=== PATIENT | female | born 1940 | race Caucasian/White ===

== ENCOUNTER → 2020-03-08 | Outpatient (CLI) | payer MEDICARE, OTHER ==
[~2020-03-08] MED LIST: ACET325 PO; ALBU90OI INH; AMLO10 PO; AMOX875 PO; ASPI81CH PO; BENTYL10 MG; BENTYL10 MG PO; BP MED; Biotin1 MG PO; CALCA500CH PO; CIPR500 PO; CLON.1 PO; DICYCLOMINE PO; DOC250 PO; ERGO400 PO; FLUT44OIA IH; Flonase 0.05% N16 GM; GLUC500 PO; HYDACE5 PO; HYDMOR2 PO; HYDPAM50 PO; IBUP800; LATA.005SO BOTHEYES; LIDOCAINE5 GM TP; LISI20 PO; LISI5 PO; METCAR500 PO; METPRE4DP PO; METR500 PO; MULVITMIND PO; MUPI2TO TOP; NORT50; OMEP10ER; OMEP20ER PO; ONDA4 PO; ONDA4ODT MM; ONDA8 PO; OXYACE5T PO; POTA10T PO; POTCHL20ER PO; PROACE100 PO; PROACE50; PROM25 PO; PROP60 PO; Percocet 10-321 EACH PO; Propranolol HCl60 MG; RXHYDMOR2 PO; RXONDA4ODT MM; TOCO400 PO; TRAM50 PO; TRIA50; TRIHYD5075 PO; Zithromax250 MG PO; [UNRECOGNIZED DRUG - REMARK]
== END | disposition home or self-care (01) ==
LOC: LAB EV 12:22 → LAB SHORT 12:22
DX: N39.0 Urinary tract infection, site not specified (principal)
CPT/HCPCS: 87086

== ENCOUNTER 2022-04-19 10:40 | Inpatient (IN) | payer MEDICARE ==
[~2022-04-19] VITALS: Ht 167.6 cm; Wt 83.8 kg
[~2022-04-19 10:40] MED LIST changes: -Propranolol HCl60 MG; +Propranolol HCl60 MG PO
[2022-04-19 11:09] LABS: BASOPHILS ABSOLUTE AUTO 0.02 K/mm3 (0.00-0.23); BASOPHILS PERCENT AUTO 0 % (0-2); EOSINOPHILS ABSOLUTE AUTO 0.01 K/mm3 (0.00-0.68); EOSINOPHILS PERCENT AUTO 0 % (0-6); Hematocrit 38.2 % (33.0-51.0); IMMATURE GRAN ABSOLUTE AUTO 0.04 K/mm3 (0.00-0.10); IMMATURE GRAN PERCENT AUTO 0 % (0-1); LYMPHOCYTES PERCENT AUTO 28 % (21-46); MONOCYTES ABSOLUTE AUTO 0.99 K/mm3 (0.16-1.47); MONOCYTES PERCENT AUTO 7 % (4-13); Mean Corpuscular HGB 26.2 pg (26.0-34.0); Mean Corpuscular HGB Conc 31.4 g/dL (31.5-36.5); Mean Corpuscular Volume 83 fL (80-100); Mean Platelet Volume 9.9 fL (9.1-12.4); NEUTROPHILS ABSOLUTE AUTO 8.98 K/mm3 (1.96-9.15); NEUTROPHILS PERCENT AUTO 65 % (41-73); Platelet Count 344 K/mm3 (150-400); RDW Coefficient Variation 14.8 % (11.7-14.2); RDW Standard Deviation 44.8 fL (35.1-46.3); Red Blood Cell Count 4.58 M/mm3 (3.80-5.20); White Blood Cell Count 13.84 K/mm3 (4.00-11.30)
[2022-04-19 11:17] LABS: Albumin, Blood 3.4 g/dL (3.4-5.0); Albumin/Globulin Ratio 0.8 (0.8-1.8); Bilirubin, Total 0.4 mg/dL (0.1-1.0); Bun/Creatinine Ratio 32.3 (12.0-20.0); Calcium, Blood 8.8 mg/dL (8.5-10.1); Creatinine, Blood 0.62 mg/dL (0.40-1.00); Potassium, Blood 3.5 mmol/L (3.5-5.5); Total Protein, Blood 7.4 g/dL (6.4-8.2)
[2022-04-19 12:23] LABS: Source, Urine Clean Catch
[2022-04-19 12:53] LABS: Appearance, Urine Clear (Clear); Bilirubin, Urine Neg (Neg); Blood, Urine 1+ (Neg); Color, Urine Yellow (P-Yellow); Glucose Qualitative, Urine Neg (Neg); Ketones, Urine Neg (Neg); Leukocyte Esterase, Urine Neg (Neg); Nitrite, Urine Neg (Neg); Protein, Urine 1+ (Neg); Urobilinogen, Urine NORM (Normal)
[2022-04-19 13:29] LABS: Bacteria Not Seen /hpf; Red Blood Cells, Urine 0-2 /hpf (0-2); Squamous Epithelial Cells Rare /hpf (Few); White Blood Cells, Urine 0-2 /hpf (0-5)
[2022-04-19 19:02] LABS: Hematocrit 38.4 % (33.0-51.0); Hemoglobin 12.1 g/dL (11.5-16.0)
--- NOTE | 2022-04-19 19:36 | NUR ---
SHIFT SUMMARY/ ADMIT NOTE- PT ADMITTED THROUGH THE ED FOR COLITIS, SHE HAS A LLE DVT. ON ASSESSMENT LEFT PEDAL PULSE IS STRONGER THAN THE RIGHT. PT C/O A 9/10 HEADACHE MEDICATED WITH TYLENOL. PT SOUNDS CONGESTED AND STATED THE HEADACHE FEELS LIKE A SINUS HEADACH WITH PRESSURE IN HER FOREHEAD AND CHEEKS. IVF STARTED AND ABX INFUSING. PT IS ALERT ORIENTED AND INDEPENDENT IN THE ROOM. NOTED A GI PANEL ORDER, PT TO BE PLACED IN ISO FOR R/O C-DIFF BY POULTRY FARMWORKER STAFF. BEDSIDE REPORT COMPLETED WITH NIGHT RN, PT IN BED, CALL LIGHT IN REACH, BED LOW, NO S&S OF DISTRESS NOTED AT THIS TIME.
[2022-04-19] MEDS ORDERED: METOPROLOL TART25 MG PO (19:45)
[2022-04-19 23:48] LABS: Adenovirus F 40/41 Not Detected (NOT DETECT); Astrovirus Not Detected (NOT DETECT); Campylobacter Sp Not Detected (NOT DETECT); Cryptosporidium Not Detected (NOT DETECT); Cyclospora Cayetanensis Not Detected (NOT DETECT); E. Coli O157 Not Detected (NOT DETECT); Entamoeba Histolytica Not Detected (NOT DETECT); Enteroaggregative E. coli-EAEC Not Detected (NOT DETECT); Enteropathogenic E. coli-EPEC Not Detected (NOT DETECT); Enterotoxigenic E. coli-ETEC Not Detected (NOT DETECT); Giardia Lamblia Not Detected (NOT DETECT); Norovirus GI/GII Not Detected (NOT DETECT); Plesiomonas Shigelloides Not Detected (NOT DETECT); Rotavirus A Not Detected (NOT DETECT); Salmonella Sp Not Detected (NOT DETECT); Sapovirus Not Detected (NOT DETECT); Shiga Toxin-prod E. coli-STEC Not Detected (NOT DETECT); Shigella/Enteroin E. coli-EIEC Not Detected (NOT DETECT); Vibrio Cholerae Not Detected (NOT DETECT); Vibrio Sp Not Detected (NOT DETECT); Yersinia Enterocolitica Not Detected (NOT DETECT)
[2022-04-20 05:14] LABS: BASOPHILS ABSOLUTE AUTO 0.03 K/mm3 (0.00-0.23); BASOPHILS PERCENT AUTO 0 % (0-2); EOSINOPHILS ABSOLUTE AUTO 0.02 K/mm3 (0.00-0.68); EOSINOPHILS PERCENT AUTO 0 % (0-6); Hematocrit 35.4 % (33.0-51.0); Hemoglobin 11.2 g/dL (11.5-16.0); IMMATURE GRAN ABSOLUTE AUTO 0.04 K/mm3 (0.00-0.10); IMMATURE GRAN PERCENT AUTO 0 % (0-1); LYMPHOCYTES ABSOLUTE AUTO 2.13 K/mm3 (0.84-5.20); LYMPHOCYTES PERCENT AUTO 18 % (21-46); MONOCYTES ABSOLUTE AUTO 0.94 K/mm3 (0.16-1.47); MONOCYTES PERCENT AUTO 8 % (4-13); Mean Corpuscular HGB 26.2 pg (26.0-34.0); Mean Corpuscular HGB Conc 31.6 g/dL (31.5-36.5); Mean Corpuscular Volume 83 fL (80-100); NEUTROPHILS ABSOLUTE AUTO 8.72 K/mm3 (1.96-9.15); NEUTROPHILS PERCENT AUTO 73 % (41-73); Platelet Count 286 K/mm3 (150-400); RDW Standard Deviation 44.9 fL (35.1-46.3); Red Blood Cell Count 4.27 M/mm3 (3.80-5.20); White Blood Cell Count 11.88 K/mm3 (4.00-11.30)
--- NOTE | 2022-04-20 05:26 | NUR ---
PATIENT WITH VSS ON RA OVERNIGHT. MODERATE C/O PAIN AND NAUSEA. SEE MAR. UP INDEPENDENTLY IN THE ROOM. MULTIPLE SMALL, BRIGHT RED STOOLS OVERNIGHT. SKIN INSPECTION REVEALS NO ACUTE SKIN BREAKDOWN. NO ACUTE EVENTS OVERNIGHT.
[2022-04-20 05:30] LABS: International Normalized Ratio 1.05
[2022-04-20 05:45] LABS: Albumin/Globulin Ratio 0.8 (0.8-1.8); Bilirubin, Total 0.6 mg/dL (0.1-1.0); Creatinine, Blood 0.59 mg/dL (0.40-1.00); Globulin, Blood 3.8 g/dL (2.2-4.0); Magnesium, Blood 2.1 mg/dL (1.6-2.4); Potassium, Blood 3.2 mmol/L (3.5-5.5); Total Protein, Blood 6.8 g/dL (6.4-8.2)
[2022-04-20 10:24] LABS: Hematocrit 37.9 % (33.0-51.0); Hemoglobin 11.9 g/dL (11.5-16.0)
--- NOTE | 2022-04-20 11:03 | NUR ---
Pt. is awake in bed and welcomes my visit. Pt. is unsettled waiting for a clear diagnosis of her abdominal pain as well as the status of a blood clot in her leg. Pt. is generally pleasant. Listen empathetically with a calming presence. Establish rapport and speak about her personal micah and belief which is a source of strength for her. Pt. verbalizes the support of her daughters. Prayed with Pt. Pt. displayed evidence of reduced stress. Pt. verbalized gratitude for the spiritual care visit.
[2022-04-20 11:33] LABS: Influenza A, PCR NEGATIVE (NEGATIVE); Influenza B, PCR NEGATIVE (NEGATIVE); Resp Syncytial Virus, PCR NEGATIVE (NEGATIVE); SARS-Cov-2 (COVID-19) PCR, MMC NEGATIVE (NEGATIVE)
[2022-04-20 14:02] LABS: Hematocrit 37.6 % (33.0-51.0); Hemoglobin 11.9 g/dL (11.5-16.0)
[2022-04-20 18:23] LABS: Hematocrit 37.7 % (33.0-51.0); Hemoglobin 12.1 g/dL (11.5-16.0)
--- NOTE | 2022-04-20 19:47 | NUR ---
SHIFT SUMMARY- CALLED DR ROBERT SEVERAL TIMES T/O THE SHIFT, PPT HAVING FAUZIA RED STOOLS AND RECIEVING LOVENOX SHOTS TO TREAT DVT. OK TO GIVE MORNING DOSE, WENT TO GIVE THE MORNING DOSE AND PT HAD PASSED A GOOD SIZED FAUZIA RED CLOT. CALLED AGAIN, ORDER TO HOLD OFF UNTIL SHE SPEAKS WITH IR. OK TO GIVE LOVENOX PER DR ROBERT, DOSE WAS LATE. PT HAS HAD AT LEAST THREE EPISODES OF PASSING BLOOD CLOTS THIS SHIFT, DR ROBERT IS AWARE. PT HAD AN EPISODE OF HYPERTENSION MEDICATED WITH PRN HYDRALIZINE, ON BP RECHECK THE PT HR WAS ELEVATED TO 130. PT WAS NOTABLY TIRED AND APEARED LESS INTERACTIVE WITH STAFF AND C/O STARTING TO DRY HEAVE. INFORMED AND RECIEVED ORDER FOR TELE AND IV LEBETOLOL FOR HR GREATER THAN 120. AFTER IV LEBETOLOL PT STATED THE NAUSEA WAS GREATLY IMPROVED BUT SHE WAS STILL NAUSEATED, GAVE PRN PHENEGREN. BEDSIDE REPORT COMPLETED WITH NIGHT RN AT THAT TIME PT REQUESTED MORE PAIN MANAGEMENT MEDICATION (DOSE WAS INCREASED PER EARLIER IN THE SHIFT) NIGHT RN TO MEDICATE THE PT. PT IN BED, CALL LIGHT IN REACH NO S&S OF DISTRESS RATES PAIN AT 7/10 AT THE TIME OF SHIFT CHANGE.
[2022-04-20 20:28] LABS: Hemoglobin 11.7 g/dL (11.5-16.0)
[2022-04-20 21:57] LABS: Hematocrit 35.4 % (33.0-51.0); Hemoglobin 11.2 g/dL (11.5-16.0)
[2022-04-21 01:57] LABS: BASOPHILS ABSOLUTE AUTO 0.04 K/mm3 (0.00-0.23); BASOPHILS PERCENT AUTO 0 % (0-2); EOSINOPHILS ABSOLUTE AUTO 0.02 K/mm3 (0.00-0.68); EOSINOPHILS PERCENT AUTO 0 % (0-6); Hematocrit 38.1 % (33.0-51.0); Hemoglobin 12.2 g/dL (11.5-16.0); IMMATURE GRAN ABSOLUTE AUTO 0.08 K/mm3 (0.00-0.10); IMMATURE GRAN PERCENT AUTO 1 % (0-1); LYMPHOCYTES ABSOLUTE AUTO 3.83 K/mm3 (0.84-5.20); LYMPHOCYTES PERCENT AUTO 26 % (21-46); MONOCYTES ABSOLUTE AUTO 1.01 K/mm3 (0.16-1.47); MONOCYTES PERCENT AUTO 7 % (4-13); Mean Corpuscular HGB 26.4 pg (26.0-34.0); Mean Corpuscular Volume 83 fL (80-100); Mean Platelet Volume 9.8 fL (9.1-12.4); NEUTROPHILS ABSOLUTE AUTO 9.89 K/mm3 (1.96-9.15); NEUTROPHILS PERCENT AUTO 67 % (41-73); Platelet Count 304 K/mm3 (150-400); RDW Standard Deviation 45.1 fL (35.1-46.3); Red Blood Cell Count 4.62 M/mm3 (3.80-5.20); White Blood Cell Count 14.87 K/mm3 (4.00-11.30)
[2022-04-21 02:16] LABS: Anion Gap 7 mmol/L (6-16); Blood Urea Nitrogen 7 mg/dL (8-24); Bun/Creatinine Ratio 11.3 (12.0-20.0); CO2, Blood 30 mmol/L (21-32); Calcium, Blood 8.6 mg/dL (8.5-10.1); Chloride, Blood 102 mmol/L (98-108); Creatinine, Blood 0.62 mg/dL (0.40-1.00); Glomerular Filtration Rate 90 (60-); Glucose, Blood 122 mg/dL (70-99); Phosphorus, Blood 2.8 mg/dL (2.5-4.9); Potassium, Blood 3.1 mmol/L (3.5-5.5); Sodium, Blood 139 mmol/L (136-145)
--- NOTE | 2022-04-21 04:33 | NUR ---
SHIFT SUMMARY: PT A/OX4, ADLIB IN ROOM AND INDEPENDENT WITH ADL'S. CONTINUED PLAN OF PAIN & NAUSEA CONTROL THROUGHOUT THE SHIFT. PATIENT CALLS APPROPRIATELY- REPORTS NO BLOOD IN STOOL THROUGHOUT THE NIGHT. PATIENT REPORTED 1 LARGE BOWEL MOVEMENT. PATIENT RECEIVED HIGHER DOSE OF 100 MCG FENTANYL AND TOLERATED WELL. PATIENT CONTINUES TO CALL APPROPRIATELY AND REPORTS NO DIZZINESS WHEN AMBULATING.
[2022-04-21 05:47] LABS: Hematocrit 34.5 % (33.0-51.0)
[2022-04-21 14:02] LABS: Hematocrit 35.4 % (33.0-51.0); Hemoglobin 11.2 g/dL (11.5-16.0)
--- NOTE | 2022-04-21 16:28 | NUR ---
RECIEVED A CALL FROM TELE- PT HR TACHY UP TO 150'S DOWN TO 120'S BY THE TIME OF THE CALL. CHECKED ON THE PT, SHE WAS LYING IN BED CALL LIGHT IN REACH NO S&S OF DISTRESS. VITALS CHECKED, READING WAS HIGH SO CHECKED IN BOTH ARMS SBP IN THE RIGHT ARM WAS 150'S LLEFT ARM WAS 190'S. CALLED DR BECKMAN, HE IS AWARE OF THE EPISODE OF TACHYCARDIA AND THE ODD BLOOD PRESSURE READINGS DIFFERENT IN BOTH ARMS.
--- NOTE | 2022-04-21 17:19 | NUR ---
PT HAD ANOTHER EPISODE OF TACHYCARDIA 160'S- BY THE TIME THE PT VITALS WERE CHECKED HER HR HAD REDUCED DOWN TO 103. PT WAS SITTING AT THE EOB AND STATED SHE WAS DRY HEAVING (NOT WITNESSED). WHEN ASKED IF SHE WAS NAUSEOUS NOW SHE STATED NO NOT AT THIS TIME, "ITS GONE NOW." CALLED DR BECKMAN HR NO LONGER SUSTAINING OVER 120, IV METOPROLOL NOT GIVEN. DR LERNER. REQUESTED TRANSFER TO PCU FOR CLOSER MONITORING AT THIS TIME.
--- NOTE | 2022-04-21 17:58 | NUR ---
TRANSFER NOTE- PT TRANSFERED TO PCU 20. TELEPHONE REPORT GIVEN TO MARCELINO SY. PT HR ELEVATED AT THE TIME OF ARRIVAL IN PCU. BASEBALL WINDER SUSY AT THE BEDSIDE, IV METOPROLOL PULLED BY THIS RN AND BROUGHT TO THE BEDSIDE AT THE TIME OF TRANSFER. PT DID NOT SEEM DISTRRESSED DISPITE THE HIGH HR. BRIDGE BUILDER ASSUMED CARE OF PT AND WAS PREPARING IV PUSH OF METOPROLOL.
--- NOTE | 2022-04-21 18:24 | NUR ---
ARRIVAL TO PCU/SHIFT SUMMARY PATIENT ARRIVED FROM MEDICAL FLOOR AT 1746. PATIENT TRANSFERED TO PCU BED INDEPDENTLY. PATIENT WHEN ARRIVING HEART RATE WAS IN 130S. PATIENT RECEIVED A PUSH OF METOPROLOL, SEE EMAR, AND HEART RATE HAS BEEN SUSTAINING IN 80-100S. PATIENT DID TACH UP TO 110 WHEN USING THE BEDSIDE COMODE AND THEN HEART RATE DECREASED BACK INTO THE 90S. BP IS LESS HYPERTENSIVE AFTER MEDICATION. SEE VITAL SIGNS. NEURO IS INTACT. ALERT AND OREINTED X4. PERRLA. PATIENT REPORTS NO CHEST PAIN/PRESSURE. TELE SINUS TACH. PROLONG QT INTERVAL 5.2. STRONG RADAIL AND PEDIS PULSES. PATIENT REPORTS NO SHORTNESS OF BREATH. CLEAR LUNG SOUNDS. ON RA SPO2 >90%. PATIENT ABD SOFT NONTENDER AND ACTIVE. PATIENT HAD A SMALL BLOODY STOOL. SKIN IS INTACT DRY AND CLEAN. PATIENT REPORTS NO PAIN. PATIENT USES CALL LIGHT APPRORPIATELY. CALL LIGHT WITHIN REACH AND BED IN LOWEST POSITION. WILL CONITNUE TO MONITOR AND PROVIDE CARE UNTIL HAND OFF WITH NEXT SHIFT.
--- NOTE | 2022-04-21 19:10 | NUR ---
ASSUMPTION OF CARE PT SITTING ON EDGE OF BED. SHE IS ALERT AND ORIENTED. C/O R SIDED ABDOMINAL PAIN THAT IS 7/10. MEDICATED PER EMAR. SHE STS THIS PAIN IS NOT NEW AND HAS FELT THE SAME THROUGHOUT THE HOSPITAL VISIT. SHE DENIES NAUSEA AT THIS TIME. SHE IS RECEIVING NS 100MLS/HR. SEE SHIFT ASSESSMENT.
--- NOTE | 2022-04-22 01:26 | NUR ---
UPDATE PT HAS BEEN RESTLESS FOR THE FIRST HALF OF THE NIGHT. SHE CONTINUES TO C/O ABDOMINAL PAIN IN THE LUQ AND LLQ. SHE STS THIS HAS BEEN UNCHANGED SINCE ADMISSION BUT IS BEGINNING TO "FEEL BETTER". SHE HAS BEEN USING THE RESTROOM ABOUT ONCE AN HOUR. SHE VOIDS CLEAR YELLOW URINE, BMS ARE LOOSE/LIQUID. AT THE BEGINNING OF THE SHIFT, BMS HAD RED TINT, NOW THEY ARE MOSTLY BROWN. OCCASIONAL NAUSEA AND DRY HEAVING SPELLS. SHE BECOMES TACHY WITH EXCERTION, HR INCREASING TO 110S-120S THAT QUICKLY SUBSIDE ONCE SHE IS BACK IN BED. SHE DENIES SOB OR CP. SHE HAS BEEN HYPERTENSIVE AND MEDICATED PER EMAR. SHE DENIES NEEDS AT THIS TIME, CALL LIGHT WITHIN REACH.
[2022-04-22 04:43] LABS: BASOPHILS ABSOLUTE AUTO 0.05 K/mm3 (0.00-0.23); BASOPHILS PERCENT AUTO 0 % (0-2); EOSINOPHILS ABSOLUTE AUTO 0.02 K/mm3 (0.00-0.68); EOSINOPHILS PERCENT AUTO 0 % (0-6); Hematocrit 35.7 % (33.0-51.0); Hemoglobin 11.5 g/dL (11.5-16.0); IMMATURE GRAN ABSOLUTE AUTO 0.06 K/mm3 (0.00-0.10); IMMATURE GRAN PERCENT AUTO 1 % (0-1); LYMPHOCYTES ABSOLUTE AUTO 3.58 K/mm3 (0.84-5.20); LYMPHOCYTES PERCENT AUTO 31 % (21-46); MONOCYTES ABSOLUTE AUTO 0.85 K/mm3 (0.16-1.47); MONOCYTES PERCENT AUTO 7 % (4-13); Mean Corpuscular HGB 26.6 pg (26.0-34.0); Mean Corpuscular HGB Conc 32.2 g/dL (31.5-36.5); Mean Corpuscular Volume 83 fL (80-100); Mean Platelet Volume 10.1 fL (9.1-12.4); NEUTROPHILS ABSOLUTE AUTO 7.19 K/mm3 (1.96-9.15); NEUTROPHILS PERCENT AUTO 61 % (41-73); Platelet Count 305 K/mm3 (150-400); RDW Standard Deviation 45.7 fL (35.1-46.3); Red Blood Cell Count 4.32 M/mm3 (3.80-5.20); White Blood Cell Count 11.75 K/mm3 (4.00-11.30)
[2022-04-22 05:05] LABS: Bun/Creatinine Ratio 10.5 (12.0-20.0); Calcium, Blood 8.5 mg/dL (8.5-10.1); Creatinine, Blood 0.57 mg/dL (0.40-1.00); Potassium, Blood 2.7 mmol/L (3.5-5.5)
--- NOTE | 2022-04-22 06:48 | NUR ---
SHIFT SUMMARY PT HAS BEEN AWAKE FOR MOST OF NIGHT. SHE IS RECEIVING NS 100MLS/HR. SHE IS A&OX4. RR 12-20, LUNGS CLEAR T/O. SHE IS IN SINUS RHYTHM WITH BBB. HR AND BP INCREASE WITH EXCERTION. SHE HAS RECEIVED HYDRALAZINE AND METOPROLOL PER EMAR. PT EXPRESSES FEELING ANXIOUS WHEN TAKING HER BP. SHE HAS HAD ABDOMINAL PAIN THROUGHOUT THE NIGHT THAT IS MAINLY IN THE LUQ AND LLQ. PT UP TO RESTROOM SEVERAL TIMES WITH LOOSE STOOL. BEGINNING OF SHIFT HAD TWO BMS WITH RED TINT, THE REST HAVE BEEN BROWN. SHE HAS BEEN NAUSEOUS AND DRY HEAVES PERIODICALLY. SHE STS SHE DRY HEAVES OFTEN AT HOME. AT APPROX 0640 AFTER PO MED ADMINISTRATION PT C/O NAUSEA AND VOMITS 60ML YELLOW/BILE INTO EMESIS BAG. SHE HAS URINATED SEVERAL TIMES, URINE IS CLEAR YELLOW. AM LABS SHOW POTASSIUM 2.7. HOSPITALIST CALLED AND RECEIVED ORDER FOR PO AND IV POTASSIUM. WILL REPORT TO ONCOMING RN.
--- NOTE | 2022-04-22 09:38 | NUR ---
CARE ASSUMPTION THIS RN ASSUMED CARE FROM KATHERIN AT 0700. VSS. TELE [place]ACH 104. HYPERTENSIVE BP. MEDICATION WITH AM MEDS. PATIENT IS ALERT AND ORIENTED X4. PERRLA. NEURO IS INTACT. PATIENT REPORTS LEFT ABD PAIN, RATED AT 6, ON SCALE OF 0-10, 10 BEING THE WORST PAIN. PATIENT RECEIVED PAIN MEDICATION PER EMAR, AND UPAON REASSESSMENT PAIN DECREASED TO A 3. PATIENT REPORTS NO CHEST PAIN/PRESSURE. STRONG RADIAL AND PEDIS PULSE. PATIENT REPROTS NO SHORTNESS OF BREATH. CLEAR LUNG SOUNDS. PATIENT REPROTS NO NAUSEA AT THIS TIME. SEE SHIFT ASSESSMENT FOR FURTHER DETAILS. PATIENT UP TO THE BATHROOM THIS AM WITH A STAND BY ASSIST AND HEART RATE TACHED UP TO 110S. MD BECKMAN IN TO SEE PATIENT THIS AM AND SWITCHED PATIENT TO A [facility] SOFT DIET. PATIENT STATED HER HEMORRHOIDS ARE ACTIING UP. PATIENT SITTING IN THE BEDSIDE CHAIR. PATIENT UNDERSTANDS PLAN OF CARE AND HAS NO QUESTIONS AT THIS TIME. THIS RN USED THERAPEUTIC COMMUNICATION AND ACTIVE LISTENING WITH ALL INTERACTIONS. CALL LIGHT IS WITHIN REACH. WILL CONTINUE TO MONITOR AND PROVIDE CARE.
--- NOTE | 2022-04-22 15:24 | NUR ---
UPDATE THIS RN GAVE THE PATIENT IV HYDRALAZINE 10MG FOR SBP >140, SEE VITAL SIGNS SECTION, AT 1402. UPON REASSESSMENT PATIENT SBP WAS <140, SEE VITAL SIGNS SECTION. AT 1515 THIS RN GAVE A 5M IV PUSH OF LOPRESSOR DUE TO HEART RATE SUSTAINING GREATER THAN 120. UPON REASSESSMENT PATIENT HEART RATE HAS BEEN BELOW 120. THIS RN WILL CONTINUE TO MONITOR AND PROVIDE CARE. SEE VITAL SIGNS SECTION AND EMAR. CALL LIGHT WITHIN REACH AND BED IN LOWEST POSITION.
--- NOTE | 2022-04-22 17:41 | NUR ---
SHIFT SUMMARY PATIENT NEURO REMAINS INTACT. VSS. TELE SINUSTACH. PATIENT REPORTED LEFT ABD PAIN ON AND OFF THROUGHOUT THE DAY AND WAS MEDICATED PER EMAR. PATIENT HAD FAMILY MEMBERS IN THROUGHOUT THE DAY TO VISIT HER. PATIENT REPORTS NO NEW CONCERNS AT THIS TIME. PATIENT USES CALL LIGHT APPROPRIATELY. CALL LIGHT IS WITHIN REACH AND BED IS IN LOWEST POSITION. NO ACUTE CHANGES THIS SHIFT. WILL CONTINUE TO MONITOR AND PROVIDE CARE UNTIL HAND OFF WITH NEXT SHIFT.
[2022-04-23 04:07] LABS: BASOPHILS ABSOLUTE AUTO 0.02 K/mm3 (0.00-0.23); BASOPHILS PERCENT AUTO 0 % (0-2); EOSINOPHILS ABSOLUTE AUTO 0.08 K/mm3 (0.00-0.68); EOSINOPHILS PERCENT AUTO 1 % (0-6); Hematocrit 31.2 % (33.0-51.0); Hemoglobin 9.7 g/dL (11.5-16.0); IMMATURE GRAN ABSOLUTE AUTO 0.03 K/mm3 (0.00-0.10); IMMATURE GRAN PERCENT AUTO 0 % (0-1); LYMPHOCYTES ABSOLUTE AUTO 2.65 K/mm3 (0.84-5.20); LYMPHOCYTES PERCENT AUTO 32 % (21-46); MONOCYTES ABSOLUTE AUTO 0.65 K/mm3 (0.16-1.47); MONOCYTES PERCENT AUTO 8 % (4-13); Mean Corpuscular HGB 26.3 pg (26.0-34.0); Mean Corpuscular HGB Conc 31.1 g/dL (31.5-36.5); Mean Corpuscular Volume 85 fL (80-100); Mean Platelet Volume 10.1 fL (9.1-12.4); NEUTROPHILS ABSOLUTE AUTO 4.76 K/mm3 (1.96-9.15); NEUTROPHILS PERCENT AUTO 58 % (41-73); Platelet Count 264 K/mm3 (150-400); RDW Coefficient Variation 15.3 % (11.7-14.2); RDW Standard Deviation 46.4 fL (35.1-46.3); Red Blood Cell Count 3.69 M/mm3 (3.80-5.20); White Blood Cell Count 8.19 K/mm3 (4.00-11.30)
[2022-04-23 04:23] LABS: Bun/Creatinine Ratio 12.2 (12.0-20.0); Calcium, Blood 8.1 mg/dL (8.5-10.1); Creatinine, Blood 0.66 mg/dL (0.40-1.00); Magnesium, Blood 1.8 mg/dL (1.6-2.4); Phosphorus, Blood 3.2 mg/dL (2.5-4.9); Potassium, Blood 2.8 mmol/L (3.5-5.5)
--- NOTE | 2022-04-23 05:09 | NUR ---
SHIFT SUMMARY NO ACUTE CHANGES NOTED DURING THE NIGHT. PT REMAINS A&O X4, ON RA, PAIN TO LLQ MEDICATED PER EMAR. IV PHENERGAN GIVEN X1 PER PT REQUEST. PT HAS HAD A FEW LOOSE STOOLS THROUGH THE NIGHT, SHE CONTINUES TO HAVE SMALL SPOTS OF FAUZIA BLOOD, APPEARS TO BE HEMORRHOID BLEEDING, PT IS AWARE THAT WE ARE WATCHING FOR BLEEDING, SHE WILL SAVE THE STOOL IN THE TOILET. PT REMAINS ON RA, VSS, CALL LIGHT IN REACH. WCTM & REPORT TO DAY RN.
--- NOTE | 2022-04-23 09:35 | NUR ---
CARE ASSUMPTION THIS RN ASSUMED CARE AT 0700 FROM ROBERTO BENSON. VSS. TELE SR/ST 100S. SPO2 >90% ON RA. PATIENT IS ALERT AND ORIENTED X4. PERRLA. NEURO INTACT. PATIENT REPORTS NO PAIN THIS AM. PATIENT REPORTS NO NAUSEA THIS AM. PATIENT REPORTS NO CHEST PAIN/PRESSURE THIS AM. STRONG RADAIL AND PEDIS PULSES. CAP REFILL <3SECONDS. PATIENT REPORTS NO SHORTNESS OF BREATH, CLEAR LUNG SOUNDS. PATIENT ABD IS TENDER ON LEFT SIDE WITH PALPATION, ACTIVE, MILD DISTENTION. SKIN IS CLEAN DRY AND INTACT. SEE SHIFT ASSESSMENT FOR FURTHER DETIALS. PATIENT RECEIIVING IV POTASSIUM THIS AM, SEE EMAR FOR MORE DETAILS. MD BECKMAN TO SEE PATIENT THIS AM. PLAN IS TO STOP FLUIDS, SINCE PATIENT IS TAKIG PO INTAKE WELL. PLAN IS TO SEE WHAT HYDRO PLANT OPERATOR SAYS ABOUT PRONLONG QT. PLAN IS START PATIENT BACK ON NORVASC TO HELP CONTROL BP. PATIENT MADE AWARE OF THIS AND AGREES TO PLAN OF CARE. PATIENT KNOWS TO LET STAFF SEE ANY BOWEL MOVEMENT, TO IDENTIFY IF THERE IS ANY BLOOD IN STOOL. PATIENT IS INDEPDENT, BUT HAD BEEN EDUCATED TO CALL US, SO WE CAN SUPERVISE SHE WALKS TO AND FROM THE BATHROOM DUE TO IV HOOKED UP. PATIENT USES CALL LIGHT APPRORPIATELY. CALL LIGHT IS WITHIN REACH AND BED IN LOWEST POSITION. WILL CONTINUE TO MONITOR AND PROVIDE CARE.
--- NOTE | 2022-04-23 16:49 | NUR ---
TACHY EPISODE PATIENT GOT UP TO USE THE RESTROOM. WHILE GOING TO THE RESTROOM PATIENT TACHED UP TO 160. ONCE PATIENT GOT BACK IN BED HEART RATE DECREASED, AND SUSTAINED UNDER 120. CALL LIGHT WITHIN REACH AND BED IN LOWEST POSITION.
--- NOTE | 2022-04-23 17:04 | NUR ---
SHIFT SUMMARY PATIENT NEURO REMAINS INTACT. VSS. THIS RN DID GIVE A 10MG HYDRALAZINE PUSH DUE TO SBP >140. SEE VITAL SIGNS TO SEE BP AND REASSESSMENT OF BP. PATIENT DID REPORT ABD PAIN THIS AFTERNOON AND RECEIVED MEDICATION PER EMAR, SEE EMAR. PATIENT CURRENTLY HAS NO ABD PAIN. SEE PERVIOUS NOTES. NO ACUE CHANGES. CALL LIGHT WITHIN REACH AND BED IN LOWEST POSITION. WILL CONITNUE TO MONITOR AND PROVIDE CARE UNTIL HAND OFF WITH NEXT SHIFT.
--- NOTE | 2022-04-23 17:54 | NUR ---
IV LOPRESSOR PUSH THIS RN DID A IV LOPRESSOR PUSH DUE TO PATIENT HEART RATE >120 AND SUSTAINING. THIS OCCURRED AFTER THE PATIENT GOT UP TO USE THE BATHROOM. HEART RATE WAS STAYING IN THE 130S. THIS RN ALLOWED TIME FOR PATIENT TO RECOVER, BEFORE GIVING THE PUSH. SEE EMAR. PATIENT HEART RATE IS NOW AFIB 100-110S.
[2022-04-24 04:44] LABS: BASOPHILS ABSOLUTE AUTO 0.05 K/mm3 (0.00-0.23); BASOPHILS PERCENT AUTO 1 % (0-2); EOSINOPHILS ABSOLUTE AUTO 0.15 K/mm3 (0.00-0.68); EOSINOPHILS PERCENT AUTO 2 % (0-6); Hemoglobin 10.7 g/dL (11.5-16.0); IMMATURE GRAN ABSOLUTE AUTO 0.04 K/mm3 (0.00-0.10); IMMATURE GRAN PERCENT AUTO 1 % (0-1); LYMPHOCYTES ABSOLUTE AUTO 3.42 K/mm3 (0.84-5.20); LYMPHOCYTES PERCENT AUTO 51 % (21-46); MONOCYTES PERCENT AUTO 9 % (4-13); Mean Corpuscular HGB Conc 31.5 g/dL (31.5-36.5); Mean Corpuscular Volume 83 fL (80-100); Mean Platelet Volume 10.3 fL (9.1-12.4); NEUTROPHILS ABSOLUTE AUTO 2.41 K/mm3 (1.96-9.15); NEUTROPHILS PERCENT AUTO 36 % (41-73); Platelet Count 315 K/mm3 (150-400); RDW Coefficient Variation 15.6 % (11.7-14.2); Red Blood Cell Count 4.12 M/mm3 (3.80-5.20); White Blood Cell Count 6.67 K/mm3 (4.00-11.30)
[2022-04-24 05:08] LABS: Bun/Creatinine Ratio 10.2 (12.0-20.0); Calcium, Blood 8.5 mg/dL (8.5-10.1); Creatinine, Blood 0.59 mg/dL (0.40-1.00); Magnesium, Blood 1.7 mg/dL (1.6-2.4); Phosphorus, Blood 3.2 mg/dL (2.5-4.9); Potassium, Blood 3.3 mmol/L (3.5-5.5)
--- NOTE | 2022-04-24 06:18 | NUR ---
SHIFT SUMMARY PATIENT ALERT AND ORIENTED x4. HYPERTENSIVE AT TIMES, MEDICATED PER EMAR WITH PRN. TACHYCARDIC WITH EXERTION. OTHERWISE NO TELE CHANGES OVERNIGHT. REMAINS ON RA WITH O2 SAT >90%. PATIENT AMBULATING INTO BATHROOM INDEPENDENTLY. MEDICATED PER EMAR FOR PAIN. PATIENT SLEPT FOR MAJORITY OF SHIFT. NO OTHER ACUTE CHANGES THIS SHIFT. WILL REPORT TO DAY SHIFT RN.
--- NOTE | 2022-04-24 15:27 | NUR ---
SHIFT SUMMARY: COLITIS PATIENT IS A&OX4. PATIENTS BP HAS BEEN HIGH MOST OF THE SHIFT AND HAS NEEDED IV HYDRALAZINE TO HELP BRING IT DOWN. PATIENT REPORTS MOST PAIN IN THE LEFT SIDE OF HER ABD. PAIN IS MANAGED WITH PO PERCOCET BUT NEEDS TO HAVE PHENERGAN GIVEN PRIOR SO PATIENT DOESN'T BECOME NAUSEOUS. SHE HAS BEEN ABLE TO TOLERATE SMALL AMOUNTS OF PO INTAKE. PATIENT IS INDEP. IN THE ROOM/BATHROOM. PATIENT IS VOIDING AND PASSING GAS. CALLS APPROPRIATELY. PATIENT IS LAYING IN BED WATCHING TV. CALL LIGHT WITHIN REACH. THE PLAN IS TO CONTINUE BP MANAGEMENT WELL PAIN MANAGEMENT.
[2022-04-25 04:09] LABS: BASOPHILS ABSOLUTE AUTO 0.04 K/mm3 (0.00-0.23); BASOPHILS PERCENT AUTO 1 % (0-2); EOSINOPHILS ABSOLUTE AUTO 0.07 K/mm3 (0.00-0.68); EOSINOPHILS PERCENT AUTO 1 % (0-6); Hematocrit 34.6 % (33.0-51.0); Hemoglobin 11.1 g/dL (11.5-16.0); IMMATURE GRAN ABSOLUTE AUTO 0.04 K/mm3 (0.00-0.10); IMMATURE GRAN PERCENT AUTO 1 % (0-1); LYMPHOCYTES ABSOLUTE AUTO 2.89 K/mm3 (0.84-5.20); LYMPHOCYTES PERCENT AUTO 42 % (21-46); MONOCYTES ABSOLUTE AUTO 0.73 K/mm3 (0.16-1.47); MONOCYTES PERCENT AUTO 11 % (4-13); Mean Corpuscular HGB 26.4 pg (26.0-34.0); Mean Corpuscular HGB Conc 32.1 g/dL (31.5-36.5); Mean Corpuscular Volume 82 fL (80-100); Mean Platelet Volume 10.2 fL (9.1-12.4); NEUTROPHILS ABSOLUTE AUTO 3.19 K/mm3 (1.96-9.15); NEUTROPHILS PERCENT AUTO 46 % (41-73); Platelet Count 349 K/mm3 (150-400); RDW Coefficient Variation 16.1 % (11.7-14.2); RDW Standard Deviation 47.7 fL (35.1-46.3); Red Blood Cell Count 4.21 M/mm3 (3.80-5.20); White Blood Cell Count 6.96 K/mm3 (4.00-11.30)
[2022-04-25 04:34] LABS: Albumin, Blood 2.8 g/dL (3.4-5.0); Albumin/Globulin Ratio 0.8 (0.8-1.8); Bilirubin, Total 0.6 mg/dL (0.1-1.0); Bun/Creatinine Ratio 16.7 (12.0-20.0); Calcium, Blood 8.5 mg/dL (8.5-10.1); Creatinine, Blood 0.66 mg/dL (0.40-1.00); Globulin, Blood 3.3 g/dL (2.2-4.0); Phosphorus, Blood 4.1 mg/dL (2.5-4.9); Potassium, Blood 3.6 mmol/L (3.5-5.5); Total Protein, Blood 6.1 g/dL (6.4-8.2)
--- NOTE | 2022-04-25 05:49 | NUR ---
SHIFT SUMMARY PATIENT ALERT AND ORIENTED x4. HYPERTENSIVE AT TIMES, MEDICATED PER EMAR WITH PRN. ALL OTHER VITALS STABLE, PATIENT REMAINS ON RA WITH O2 SAT >90%. NO CHANGES ON TELE. DENIES ABDOMINAL PAIN THIS SHIFT. MEDICATED PER EMAR FOR PAIN/NAUSEA. PATIENT AMBULATING INTO THE BATHROOM INDEPENDENTLY. ABLE TO MAKE NEEDS KNOWN TO STAFF, USES CALL LIGHT APPROPRIATELY. NO OTHER SIGNIFICANT CHANGES, WILL REPORT TO DAY SHIFT RN.
--- NOTE | 2022-04-25 10:57 | NUR ---
Pt. is awake in bed and welcomes my visit. Pt. verblizes excitement about the news of being discharged today. Re-established rapport. Prayed with Pt. Pt. verbalized gratitude for the spiritual care visit.
[2022-04-25] MEDS ORDERED: Bentyl20 MG PO (12:08)
[2022-04-25] MEDS ORDERED: LATA.005SO BOTHEYES (12:09)
[2022-04-25] MEDS ORDERED: MELATONIN5 M1 PO (12:11)
[2022-04-25] MEDS ORDERED: PROM25 PO (12:14)
[2022-04-25] MEDS ORDERED: METAMUCIL POWD575 GM PO (12:15)
[2022-04-25] MEDS ORDERED: VISBIOME 112.51 EACH PO (12:17)
[2022-04-25] MEDS ORDERED: ELIQUIS5 M2 PO (12:18)
[2022-04-25] MEDS ORDERED: METR500 PO (12:20)
[2022-04-25] MEDS ORDERED: CIPR500 PO (12:20)
--- NOTE | 2022-04-25 12:54 | NUR ---
DISCHARGE PT PROVIDED WITH WRITTEN AND VERBAL DISCHARGE INSTRUCTIONS; SHE AND HER DAUGHTER REPORTED UNDERSTANDING INSTRUCTIONS. PRESCRIPTIONS SENT BY AMELIA POPE RN TO [facility]. PT PROVIDED EDUCATION REGARDING NEW MEDICATIONS. PT EDUCATED TO FOLLOW UP WITH HER PCP IN 1 WEEK REGARDING DVT AND FOR A REFERAL TO A GI. VSS PRIOR TO DISCHARGE. PT REPORTS PAIN MANAGED AND DENIED NAUSEA AT TIME OF DISCHARGE. PT ESCORTED OUT AT APPROXIMATELY 1254.
== END 2022-04-25 12:56 | disposition home or self-care (01) | DRG 872 ==
LOC: ER 10:40 → PCU 17:31 → MEDS 17:31 → PCU 04-21 17:49
PROVIDERS: Internal Medicine; Nurse Practitioner Acute Care; Student in an Organized Health Care Education/Training Program; ADMIT Internal Medicine
DX: A41.9 Sepsis, unspecified organism (principal); I82.412 Acute embolism and thrombosis of left femoral vein; Z20.822 Contact with and (suspected) exposure to COVID-19; K52.9 Noninfective gastroenteritis and colitis, unspecified; K21.9 Gastro-esophageal reflux disease without esophagitis; E87.6 Hypokalemia; K64.9 Unspecified hemorrhoids; G89.29 Other chronic pain; I10 Essential (primary) hypertension; Z86.718 Personal history of other venous thrombosis and embolism; Z90.710 Acquired absence of both cervix and uterus; Z90.89 Acquired absence of other organs; Z98.890 Other specified postprocedural states; Z88.5 Allergy status to narcotic agent; Z88.6 Allergy status to analgesic agent; Z79.01 Long term (current) use of anticoagulants
CPT/HCPCS: 0241U; 36415; 74177; 80048; 80053; 80069; 81001; 82947; 83605; 83735; 84100; 84145; 84484; 85014; 85018; 85025; 85610; 85651; 86140; 87040; 87507; 93005; 93010; 93971; 96361; 96374; 96375; 99285-25; A9270; C9113; J0360; J1650; J1885; J2405; J2543; J2550; J3010; J3475; J3480; J7030; J7050; Q9967